=== PATIENT | male | born 1980 | race Caucasian/White ===

== ENCOUNTER → 2021-10-30 | Outpatient (CLI) | payer OTHER ==
[2021-10-30 08:19] LABS: HEMOGLOBIN 14.4 gm/dl (14.0-17.5); RED BLOOD COUNT 5.05 M/UL (4.20-5.50); WHITE BLOOD COUNT 7.4 K/UL (4.5-11.0)
[2021-10-30 09:17] LABS: BUN/CREATININE RATIO 16 (0-10)
[2021-10-31 07:11] LABS: VITAMIN D, 25-HYDROXY 12.1 ng/mL (30.0-100.0)
[2021-10-31 12:14] LABS: ANTISTREPTOLYSIN O AB 40.1 IU/mL (0.0-200.0); CREATININE, URINE 192.1 mg/dL (Not Estab.); RHEUMATOID ARTHRITIS FACTOR <10.0 IU/mL (<14.0)
== END ==
LOC: LAB 07:33
PROVIDERS: Nurse Practitioner Family
DX: Z13.1 Encounter for screening for diabetes mellitus (principal); R06.02 Shortness of breath; M54.2 Cervicalgia; M54.50 Low back pain, unspecified; R73.9 Hyperglycemia, unspecified; R53.83 Other fatigue; F41.9 Anxiety disorder, unspecified; Z13.220 Encounter for screening for lipoid disorders; N40.1 Benign prostatic hyperplasia with lower urinary tract symptoms; E53.8 Deficiency of other specified B group vitamins; E55.9 Vitamin D deficiency, unspecified; Z01.84 Encounter for antibody response examination; M25.50 Pain in unspecified joint; M47.812 Spondylosis without myelopathy or radiculopathy, cervical region
CPT/HCPCS: 36415; 71046; 72040; 72100; 80053; 80061; 81001; 82043; 82570; 82607; 83036; 84153; 84439; 84443; 84550; 85025; 85652; 86038; 86060; 86141; 86431

== ENCOUNTER → 2022-01-14 | Outpatient (CLI) | payer OTHER ==
[2022-01-14 13:50] LABS: HEMOGLOBIN 15.8 gm/dl (14.0-17.5); RED BLOOD COUNT 5.21 M/UL (4.20-5.50); WHITE BLOOD COUNT 6.7 K/UL (4.5-11.0)
[2022-01-14 14:26] LABS: BUN/CREATININE RATIO 14 (0-10)
[2022-01-15 12:12] LABS: HBSAG SCREEN Negative (Negative); HCV AB <0.1 (0.0-0.9); HEP A AB, IGM Negative (Negative); HEP B CORE AB, IGM Negative (Negative)
[2022-01-16 06:12] LABS: VITAMIN D, 25-HYDROXY 54.3 ng/mL (30.0-100.0)
== END ==
LOC: LAB 13:18
PROVIDERS: Nurse Practitioner Family
DX: E79.0 Hyperuricemia without signs of inflammatory arthritis and tophaceous disease (principal); M25.50 Pain in unspecified joint; R73.9 Hyperglycemia, unspecified; Z00.00 Encounter for general adult medical examination without abnormal findings; E78.5 Hyperlipidemia, unspecified
CPT/HCPCS: 36415; 80053; 80061; 80074; 82607; 83036; 84439; 84443; 84550; 85025; 85652; 86140

== ENCOUNTER → 2022-03-16 | Outpatient (CLI) | payer OTHER | LOC: US 08:00 | DX: R79.89 Other specified abnormal findings of blood chemistry (principal); Z90.49 Acquired absence of other specified parts of digestive tract | CPT/HCPCS: 76705 ==